=== PATIENT | female | born 1950 | race Caucasian/White ===

== ENCOUNTER 2017-04-05 08:45 | Day surgery (SDC) | payer MEDICARE, BC ==
[~2017-04-05 08:45] MED LIST: Lactated Ringers 1,000 ML IV SCH
[2017-04-05] MEDS ORDERED: fentaNYL 100 MCG/2 ML SDV ONE (11:08)
[2017-04-05] MEDS ORDERED: Propofol 200 MG/20 ML SDV ONE (11:08)
[2017-04-05] MEDS ORDERED: Ondansetron 4 MG/2 ML SDV ONE (11:15)
[2017-04-05 13:31] VITALS: BP 106/53
--- NOTE | 2017-04-05 17:58 | OR ---
PREOPERATIVE DIAGNOSIS: Screening colonoscopy. POSTOPERATIVE DIAGNOSIS: Normal colonoscopic exam. PROCEDURE PROPOSED: Total flexible colonoscopy. PROCEDURE DONE: Total flexible colonoscopy. INDICATION: This is a 67-year-old female, who comes in for her first colonoscopic exam. There is a questionable history of some family members with polyps. She denies any symptomatology. There is no family history of any colon cancer. TECHNIQUE: The patient was brought to the endoscopy suite, placed in left lateral decubitus position. She was sedated per [employer]ING [employer]ELOPMENT with propofol. The flexible video colonoscope was then passed transanally and under visualization advanced to the cecum. Examination revealed a normal ascending, transverse, descending, sigmoid, and rectal colon. There was no evidence of any polyps, diverticulosis, colitis, or any other abnormalities. The scope was then withdrawn. The patient tolerated procedure well. IMPRESSION: Essentially normal colonoscopic exam. PLAN: The patient is reassured and I felt, she could wait 10 years before she needs a repeat colonoscopy. SCM: 04/05/2017 11:35:17 MODL: 04/05/2017 17:50:33 /[id number]
== END 2017-04-05 13:25 | disposition home or self-care (01) ==
LOC: VM.SDS 08:45
PROVIDERS: ATTEND Surgery
DX: Z12.11 Encounter for screening for malignant neoplasm of colon (principal); E78.5 Hyperlipidemia, unspecified; E66.9 Obesity, unspecified; Z68.30 Body mass index [BMI] 30.0-30.9, adult; Z79.899 Other long term (current) drug therapy; Z98.890 Other specified postprocedural states; Z96.642 Presence of left artificial hip joint; Z87.891 Personal history of nicotine dependence
CPT/HCPCS: G0121; J2405; J2704; J3010; J7120

== ENCOUNTER 2019-09-18 06:59 | Day surgery (SDC) | payer MEDICARE, BC ==
[~2019-09-18 06:59] MED LIST changes: +Sodium Chloride 0.9% 10 ML Syringe FLUSH PRN
[2019-09-18] MEDS ORDERED: Sodium Chloride 0.9% 10 ML Syringe FLUSH PRN (07:00)
[2019-09-18] MEDS: Lactated Ringers 1,000 ML IV SCH ×2 (07:43→10:54)
[2019-09-18] MEDS ORDERED: Propofol 200 MG/20 ML SDV ONE (08:40)
[2019-09-18] MEDS ORDERED: fentaNYL 100 MCG/2 ML SDV ONE (08:40)
[2019-09-18 10:48] VITALS: BP 125/62; PULSE 61
[2019-09-18] MEDS ORDERED: Haloperidol Lactate 5 MG/ML SDV IV PRN (10:57)
[2019-09-18] MEDS ORDERED: Ondansetron 4 MG/2 ML SDV IV PRN (10:57)
[2019-09-18] MEDS ORDERED: Promethazine Topical Gel 0.5 ML Syringe TOP PRN (10:57)
[2019-09-18] MEDS ORDERED: Haloperidol Lactate 5 MG/ML SDV ONE (11:07)
--- NOTE | 2019-09-18 12:18 | OR ---
BRIEF HISTORY OF PRESENT ILLNESS: Ms. Kelly is a 69-year-old female who recently presented to her PCP with complaints of globus sensation as well as some chest discomfort. She was started on some Protonix which helped to alleviate those symptoms. Additionally, an esophogram was performed and reportedly noted a small hiatal hernia. I have not reviewed the official report or the images yet. Her PCP referred her for an upper endoscopy to further evaluate her esophagus and stomach. FINDINGS: 1. Small 1 to 2 cm hiatal hernia. 2. Z-line is at 36 cm. 3. Unremarkable stomach and duodenum. 4. Esophageal hiatus with Hill grade 2. 5. Biopsies of the antrum were taken and sent for H. pylori. 6. Random esophageal biopsies were also taken. ANESTHESIA: MAC anesthesia. COMPLICATIONS: None. BLOOD LOSS: Minimal. DETAILS OF PROCEDURE: After informed consent was obtained, the patient was brought to the procedure table and placed in left lateral decubitus position. MAC anesthesia was induced by Anesthesia colleagues. Biteblock was placed. The endoscope was introduced into the mouth and passed through the upper esophageal sphincter down the esophagus into the stomach. The pylorus was intubated. The duodenum was examined up to the third portion. There were no abnormalities. We then obtained antral biopsies to be sent for H. pylori. On retroflexed view, the GE junction was Hill grade 2. The scope was then withdrawn into the esophagus. There was perhaps small 1 to 2 cm hiatal hernia visible on endoscopy. The stomach was then desufflated. The esophagus appeared unremarkable. Random esophageal biopsies were taken given her dysphagia and globus sensation. The endoscope was then withdrawn. The patient tolerated the procedure well, was awoken from MAC anesthesia by Anesthesia colleagues without incident. RKM: 09/18/2019 09:50:35 MODL: 09/18/2019 12:11:25 /[id number]
== END 2019-09-18 12:30 | disposition home or self-care (01) ==
LOC: VM.SDS 06:59
PROVIDERS: ATTEND Student in an Organized Health Care Education/Training Program
DX: K21.9 Gastro-esophageal reflux disease without esophagitis (principal); K44.9 Diaphragmatic hernia without obstruction or gangrene; K29.50 Unspecified chronic gastritis without bleeding; K31.89 Other diseases of stomach and duodenum; I10 Essential (primary) hypertension; E78.00 Pure hypercholesterolemia, unspecified; I48.91 Unspecified atrial fibrillation; M19.90 Unspecified osteoarthritis, unspecified site; E66.9 Obesity, unspecified; Z68.32 Body mass index [BMI] 32.0-32.9, adult; Z87.891 Personal history of nicotine dependence; Z79.899 Other long term (current) drug therapy
CPT/HCPCS: 00731; 43239; A9270; J1630; J2405; J2704; J3010; J7120